=== PATIENT | female | born 1960 | race Caucasian/White ===

== ENCOUNTER 2017-02-14 13:04 | Outpatient (CLI) | payer BC ==
--- NOTE | 2017-02-14 16:41 | XRAY Report ---
EXAM: BILATERAL FIRST DIGIT RADIOGRAPHY EXAM DATE: 02/14/2017 01:43 PM. CLINICAL HISTORY: Possible subluxation. COMPARISON: None. TECHNIQUE: 1 view each thumb. FINDINGS: Bones: No apparent fracture or bone lesion. Joints: No evidence of subluxations. Early degenerative changes are present. Soft Tissues: Within normal limits. IMPRESSION: 1. Early degenerative changes. 2. Otherwise unremarkable single view radiographs of each thumb. [facility] Referring Provider Line: [phone] SITE ID: [id number]
--- NOTE | 2017-02-14 16:43 | XRAY Report ---
EXAM: BILATERAL SECOND DIGIT RADIOGRAPHY EXAM DATE: 02/14/2017 01:43 PM. CLINICAL HISTORY: Evaluate for subluxation. Joint instability. COMPARISON: None. TECHNIQUE: 2 views of each second digit. FINDINGS: Bones: No apparent fracture or bone lesion. Joints: No evidence of subluxations. Early degenerative changes are present. Soft Tissues: Within normal limits. IMPRESSION: 1. No evidence of fracture or subluxation. 2. Early degenerative changes are present. [facility] Referring Provider Line: [phone] SITE ID: [id number]
--- NOTE | 2017-02-14 16:44 | XRAY Report ---
EXAM: BILATERAL WRIST RADIOGRAPHY EXAM DATE: 02/14/2017 01:43 PM. CLINICAL HISTORY: Bilateral basilar joint instability. COMPARISON: None. TECHNIQUE: 3 views of each wrist. FINDINGS: Bones: No apparent fractures or bone lesions. Joints: No evidence of subluxations. Soft Tissues: Within normal limits. IMPRESSION: Normal wrist radiographs. [facility] Referring Provider Line: [phone] SITE ID: [id number]
== END 2017-02-14 13:05 | disposition home or self-care (01) ==
LOC: EDBD 13:04 → DI 13:04
PROVIDERS: ATTEND Orthopaedic Surgery
DX: M19.042 Primary osteoarthritis, left hand (principal); M19.041 Primary osteoarthritis, right hand
CPT/HCPCS: 73140